=== PATIENT | male | born 1965 | race Two or more races ===

== ENCOUNTER → 2024-08-20 | Day surgery (SDC) | payer BC ==
[~2024-08-20] VITALS: Ht 172.7 cm; Wt 95.3 kg
[~2024-08-20] MED LIST: ACETAMINOPHEN IV 1000 MG/100ML (10MG/ML) IV ONE; ASPI81CH59 PO; ATOR40TA52 PO; CETI10CA10 PO; HYDR25TA4 PO; HYDROmorphone HCL 2 MG/ML VL/or syr IV PRN; HYDROmorphone HCL 2 MG/ML VL/or syr ONE; LOSA-535 PO; METO-6 PO; METOCLOPRAMIDE HCL 5MG/ml INJ 2ml VIAL ONE; MIDAZOLAM HCL 2MG/2ML 2ml VIAL (1mg/ml) ONE; MULT50TA PO; ONDANSETRON HCL 4 MG/2 ML VIAL IV ONE; ONDANSETRON HCL 4 MG/2 ML VIAL ONE; OXYTOCIN 10UNIT/ML 1ML VIAL ONE; PROPOFOL 10 MG/ML 20 ML IV ONE; SUCCINYLCHOLINE CHLORIDE 20 MG/ML 10ML VIAL IV ONE; SUGAMMADEX 200mg/2ml Vial (100MG/ML) IV ONE; TRIAMCINOLONE 40MG/ML 1ML VIAL ONE; fentaNYL CITRATE 100 MCG/2 ML VL ONE; hydrALAZINE HCL 20 MG/ML VL IV PRN; hydrALAZINE HCL 20 MG/ML VL ONE
[2024-08-20] MEDS: ceFAZolin 2 GM/D5W50ml 50 ML IV ONE (10:05)
[2024-08-20 12:05] VITALS: TEMP 97.7; O2SAT 97
--- NOTE | 2024-08-20 12:15 | DVHOP2 ---
Operative Report - 2 Report Details Date: 08/20/24 Preop Diagnosis: Right shoulder rotator cuff tear with subacromial impingement Postop Diagnosis: Right shoulder rotator cuff tear with subacromial impingement Surgeon: Wendy Zee MD [place] Encaser: Jami Hdez, Physician [place] Encaser Anesthesiologist: Noah Wheatley CRNA Anesthesia: General, Regional Implant: Arthrex FiberTak x1, Ossio x1 Consent: The patient was informed of the risks and benefits of the procedure. These include but are not limited to complications of anesthesia, postoperative infection, incomplete relief of symptoms, recurrence of symptoms, damage to blood vessels, nerves and tendons, deep venous thrombosis, pulmonary embolism and possible need for repeat surgery in the future. Complications: None Estimated Blood Loss: Less than 10 mL Indications for Surgery: The patient is a 58-year-old male who presented to the clinic with a history of right shoulder pain. Clinical and radiological evaluation demonstrated near complete rotator cuff tear. Nonoperative and operative management options were discussed. Surgery in the form of shoulder arthroscopy with rotator cuff repair was discussed due to continued pain and lack of significant resolution with nonoperative management. Benefits, risks and treatment alternatives were discussed. Specific complications of the surgery such as neurovascular injury, infection, arthrofibrosis, loss of limb or life were discussed. The patient decided to proceed with the surgical option. Name of Procedure Performed Right shoulder arthroscopy with repair of small to medium-sized rotator cuff tear using double row technique and subacromial decompression Procedure Details Procedure Details: The patient was identified in the preoperative holding area and the surgical site was marked. The consent was verified. The patient was brought into the operating room and placed supine on the operating table. General anesthesia was administered. The beachchair attachment was applied to the operating table. The patient was now brought up into the beachchair position, approximately 60 degrees. The arm was prepped and draped in the usual sterile manner. The arm was placed in the attachment for the spyder, mechanical arm earl. The extremity was examined under anesthesia and was found to have good passive range of motion. A timeout was performed to confirm the identity of the patient, the nature of surgery, the site of surgery, the available of implants and x-rays and allergies to medications A standard posterior portal established. A 30 degree scope was inserted A standard anterior portal was established. A probe was inserted and the findings are as follows: 1. Intact subscapularis tendon 2. Mild fraying of the biceps tendon with superior labral tear, degenerative 3. Intact anterior labrum 4. Grade I-II chondromalacia 5. Significant synovitis 6. Intact articular sided rotator cuff tear The subacromial space was entered. Significant bursitis was noted. Decompression was carried out with bursectomy. The rotator cuff tear was visualized. This was a 90% footprint bursal sided tear. This was completed to a full-thickness tear. Delamination was noted. This was a medium-sized tear with 2 cm in width. Minimal retraction up to humeral head cartilage was noted. A thermal ablation Wand was used on the superior and inferior surface of the rotator cuff to do the releases. A shaver was utilized to debride the rotator cuff tendon and the footprint. A cannula was inserted into the lateral portal. The anchor was inserted via a percutaneous superior portal. This was a triple loaded all suture anchor. Excellent fixation was noted. A suture penetration and grasping device was used to grasp the tissue and passed the sutures. The sutures were sequentially passed from anterior to posterior direction. Six passes were made. The sutures were now tied for an excellent medial row footprint coverage. All sutures were now inserted into a knotless lateral row anchor. This was used as per manufacture's guidelines. A punch was used. Next, the anchor was used and inserted into the bone. Good fixation was noted. Subacromial decompression was completed with acromioplasty to remove approximately 5 mm of acromion as it was downsloping in nature. Irrigation was given and the skin portals were closed with 2-0 nylon Sterile dressing was applied. Local anesthetic was given. Shoulder immobilizer was applied Disposition: Good, the patient was extubated and taken to recovery without any complications. The patient was examined in the recovery and had intact neurovascular exam Plan: To remain in the brace. Follow-up in 1 week. Condition Fair Disposition Home WENDY ZEE MD Aug 20, 2024 12:15
[2024-08-20 13:05] VITALS: BP 139/91; PULSE 77; RESP 14; O2SAT 96
== END | disposition home or self-care (01) ==
LOC: SUR 06:43
PROVIDERS: ATTEND Orthopaedic Surgery Sports Medicine
DX: M75.121 Complete rotator cuff tear or rupture of right shoulder, not specified as traumatic (principal); S43.431A Superior glenoid labrum lesion of right shoulder, initial encounter; M94.211 Chondromalacia, right shoulder; M65.811 Other synovitis and tenosynovitis, right shoulder; M75.51 Bursitis of right shoulder; X58.XXXA Exposure to other specified factors, initial encounter; Y93.89 Activity, other specified; Y92.89 Other specified places as the place of occurrence of the external cause; Y99.8 Other external cause status
CPT/HCPCS: 29826; 29827; C1713; J0169; J0330; J0690; J1100; J1171; J2250; J2405; J2704; J2765; J3010; J3301; A4565